=== PATIENT | female | born 1950 | race Caucasian/White ===

== ENCOUNTER 2018-02-10 08:59 | Outpatient (CLI) | payer MEDICARE, BC | END 2018-02-10 09:00 | disposition home or self-care (01) | LOC: BICMAMMO 08:59 | PROVIDERS: ATTEND Internal Medicine Rheumatology | DX: Z12.31 Encounter for screening mammogram for malignant neoplasm of breast (principal); M81.0 Age-related osteoporosis without current pathological fracture; M85.859 Other specified disorders of bone density and structure, unspecified thigh | CPT/HCPCS: 77063; 77067; 77080 ==

== ENCOUNTER 2019-03-16 08:54 | Outpatient (CLI) | payer MEDICARE, BC ==
--- NOTE | 2019-03-16 09:36 | MMO ---
Bilateral MAMMO Bilat Screen [facility]. CLINICAL HISTORY: Patient is 68 years old and is seen for screening. The patient has no family history of breast cancer. The patient has no personal history of cancer. The patient has a history of left Excisional Biopsy at age 29 - benign. VIEWS: The views performed were: bilateral craniocaudal with tomosynthesis and bilateral mediolateral oblique with tomosynthesis. FILMS COMPARED: The present examination has been compared to prior imaging studies performed at [facility] on 02/10/2018, at [facility] on 02/22/2015 and 01/30/2016, and at [facility] on 02/05/2017. MAMMOGRAM FINDINGS: The breasts are heterogeneously dense, which could obscure a lesion on mammography. There are stable benign appearing calcifications seen in both breasts. There are no suspicious masses, suspicious calcifications, or new areas of architectural distortion. IMPRESSION: THERE IS NO MAMMOGRAPHIC EVIDENCE OF MALIGNANCY. A ROUTINE FOLLOW-UP MAMMOGRAM IN 1 YEAR IS RECOMMENDED. THE RESULTS OF THIS EXAM WERE SENT TO THE PATIENT. ACR BI-RADS Category 2 - Benign finding MAMMOGRAPHY NOTE: 1. A negative mammogram report should not delay a biopsy if a dominant of clinically suspicious mass is present. 2. Approximately 10% to 15% of breast cancers are not detected by mammography. 3. Adenosis and dense breasts may obscure an underlying neoplasm.
--- NOTE | 2019-03-16 10:05 | BD ---
DEXA BONE DENSITOMETRY: (Dual energy x-ray absorptiometry) DATE: 03/16/2019 HISTORY: 68-year old white female for age-related, post-menopausal, osteoporosis screening. weight: 140 lbs height: 62 in. Age of menopause: 39 COMPARISON: Most recent previous: 02/05/2017. Baseline:07/01/2007 FINDINGS: The bone mineral density (BMD) is given in grams per square centimeter (g/cm2): LUMBAR SPINE: BMD (g/cm^2) T score Z score L1: 0.755 -2.1 -0.3 L2: 0.789 -2.2 -0.1 L3: 0.720 -3.3 -1.1 L4: 0.807 -2.3 -0.1 Total: 0.769 -2.5 -0.4 Change in BMD compared to most recent previous DEXA: +4.2 %. Change in BMD compared to baseline DEXA: + 9.4 %. HIP: BMD (g/cm^2) T score Z score Femoral neck: 0.686 -1.5 0.3 Total: 0.897 -0.4 1.1 Change in BMD compared to most recent previous DEXA: 4.1 %. Change in BMD compared to baseline DEXA: N/A %. FRAX WHO fracture risk assessment tool: 10 year fracture risk* Major osteoporotic fracture: 9.5 % Hip fracture: 1.2 % Reported risk factors: US (), neck BMD = 0.704 (g/cm^2), BMI = 25.6. *Fracture probability is calculated for an untreated patient. Fracture probability may be lower if th e patient has received treatment. IMPRESSION: 1.) The mean bone mineral density of the lumbar spine is osteoporotic. Fracture risk is high. 2) The bone mineral density of the femoral neck is osteopenic. Fracture risk is increased.
== END 2019-03-16 08:55 | disposition home or self-care (01) ==
LOC: BICMAMMO 08:54
PROVIDERS: ATTEND Internal Medicine Rheumatology
DX: Z12.31 Encounter for screening mammogram for malignant neoplasm of breast (principal); M81.0 Age-related osteoporosis without current pathological fracture; M85.89 Other specified disorders of bone density and structure, multiple sites
CPT/HCPCS: 77063; 77067; 77080

== ENCOUNTER 2020-05-20 07:59 | Outpatient (CLI) | payer MEDICARE, BC ==
[2020-05-20 10:09] LABS: #Lymphocytes 1.2 thou/uL (1.20-3.40); #Monocytes 0.2 thou/uL (0.11-0.59); #Neutrophils 2.8 thou/uL (1.40-6.50); %Basophils 1.2 % (0.0-1.0); %Eosinophils 1.1 % (0.0-10.0); %Lymphocytes 27.5 % (21.0-51.0); %Monocytes 4.2 % (0.0-10.0); %Neutrophils 66.1 % (42.0-75.0); Hemoglobin 14.4 g/dL (12.0-16.0); Mean Corpuscular HGB CONC 33.4 g/dL (32.0-36.0); Mean Corpuscular Hemoglobin 32.3 pg (27.0-31.0); Mean Corpuscular Volume 96.8 fL (78.0-98.0); Mean Platelet Volume 7.1 fL (7.4-10.4); Platelet Count 215 thou/uL (130-400); RBC Distribution Width 11.7 % (11.5-14.5); Red Blood Cell (RBC) Count 4.45 mill/uL (4.20-5.40); White Blood Cell (WBC) Count 4.2 thou/uL (4.8-10.8)
[2020-05-20 10:30] LABS: ALT (SGPT) 19 U/L (8-55); AST (SGOT) 23 U/L (5-34); Albumin 5.2 g/dL (3.4-4.8); Alkaline Phosphatase 49 U/L (40-110); Anion Gap 15 mmol/L (10-20); BUN (Urea Nitrogen) 14 mg/dL (9.8-20.1); Bilirubin, Total 0.5 mg/dL (0.2-1.2); Calc. Creatinine Clearance 0 mL/min (70-130); Calcium 10.5 mg/dL (7.8-10.44); Carbon Dioxide 26 mmol/L (23-31); Chloride 103 mmol/L (98-107); Estimated GFR-MDRD 57; Globulin 3.1 g/dL (2.4-3.5); Glucose 147 mg/dL (80-115); Potassium 3.6 mmol/L (3.5-5.1); Protein, Total 8.3 g/dL (6.0-8.3); Sodium 140 mmol/L (136-145)
--- NOTE | 2020-05-20 13:14 | MRI ---
MRI brain with and without contrast: DATE: 05/20/2020 HISTORY: 69-year-old female with stage IIIB metastatic melanoma follow-up. ICD-10: C 43.9 malignant melanoma of skin. COMPARISON: [facility] [place] The report is not available. TECHNIQUE: Multiplanar, multisequence MRI of the brain obtained pre and post IV injection of gadolinium based co ntrast agent. FINDINGS: There is no obstructive hydrocephalus. There is no midline shift or any other evidence of mass effect . There is no extra-axial fluid collection. There are mild chronic ischemic white matter changes due to microvascular atherosclerosis. There is otherwise no major intra-axial signal abnormality, abn ormal enhancement, mass, recent hemorrhage, or restricted diffusion. There is a subtle finding of a faint linear enhancing draining vein in the left parietal lobe, from moore-white junction laterally to posterior left lateral ventricular surface medially, consistent with DVA (developmental venous anomaly). There is associated mild small patchy T2 hyperintensity in this location, unchanged. There is a punctate focus of hemosiderin in this location, better visualized on the previous study. The right parotid gland is absent. Overall, there has been no significant interval change. IMPRESSION: 1) mild chronic ischemic white matter changes. 2) incidental finding of small DVA (developmental venous anomaly) in left parietal lobe. 3) otherwise negative. No evidence of brain metastasis. 4) status post right parotidectomy.
--- NOTE | 2020-05-20 14:14 | CT ---
EXAM: CT chest, abdomen, and pelvis with IV contrast: HISTORY: Malignant melanoma skin. COMPARISON: 06/07/2019 [facility] from [facility] as well as a CT abdomen and pelvis on 07/30/2019 f [facility]. FINDINGS: CT THORAX: Lungs: Mild emphysematous changes are seen involving the upper lobes. Approximately 5 mm pulmonary no dule is seen at the anterolateral right lung base. Stable when compared to prior study as well as a study in 2010. No new discrete pulmonary nodule or mass is seen. Minimal scarring is seen at the quynh phery of the upper lobes bilaterally. Pleura: Tiny bilateral pleural effusions are seen not significantly changed from prior study. Lymph nodes: No lymphadenopathy. Mediastinum: No acute process of the mediastinal structures. There is a hypodense lesion in the left left lobe of the thyroid gland also seen on prior study in 2019. Chest wall: No abnormalities CT ABDOMEN AND PELVIS: Liver: Lobulated cyst right hepatic lobe is again seen. There is a small hypodense lesion seen in the medial aspect of the right hepatic lobe which was also seen on prior study as well as a study in 2009 and is unchanged in size. There is a focus of enhancement seen just below the level of the lobul ated cyst in the right hepatic lobe which may represent either prominent vessel in this region versus small vascular malformation. Previously seen hypodense cyst in the right aspect dome of the l iver is smaller in size. Gallbladder: Within normal limits. \ Pancreas: Within normal limits. Spleen: Within normal limits. Adrenal glands: Within normal limits. Kidneys: Within normal limits. Urinary Bladder: Mostly decompressed but otherwise grossly within normal limits. Reproductive organs: Evidence of hysterectomy. Bowel: Normal in caliber. Postoperative changes are seen involving the sigmoid colon with evidence of anastomosis and this region. Adenopathy:No lymphadenopathy within the abdomen or pelvis. Peritoneum: No free fluid or fluid collection is seen. No free intraperitoneal gas is identified. Abdominal wall: Multiple surgical clips are again seen in the left inguinal region left aspect of the pelvis. Osseous structures: No suspicious lytic or sclerotic osseous lesions are identified. IMPRESSION: 1. No findings to suggest metastatic disease. 2. Persistent tiny bilateral pleural effusions. 3. Stable lobulated right hepatic lobe cyst with difficult to characterize hypodense lesion medial ri ght hepatic lobe, but this lesion is stable when compared to prior studies including a study in 2009. 4. Postoperative changes sigmoid colon and involving the left aspect of the pelvis and left inguinal region.
== END 2020-05-20 08:00 | disposition home or self-care (01) ==
LOC: SCSCT 07:59
PROVIDERS: ATTEND Internal Medicine Medical Oncology
DX: C43.9 Malignant melanoma of skin, unspecified (principal); J90 Pleural effusion, not elsewhere classified; K76.89 Other specified diseases of liver; K76.9 Liver disease, unspecified; Z98.890 Other specified postprocedural states
CPT/HCPCS: 70553; 71260; 74177; 80053; 83615; 85025

== ENCOUNTER 2021-03-20 08:37 | Outpatient (CLI) | payer MEDICARE, BC | END 2021-03-20 08:38 | disposition home or self-care (01) | LOC: BICMAMMO 08:37 | PROVIDERS: ATTEND Internal Medicine Rheumatology | DX: Z12.31 Encounter for screening mammogram for malignant neoplasm of breast (principal); M81.0 Age-related osteoporosis without current pathological fracture; N64.89 Other specified disorders of breast; M85.89 Other specified disorders of bone density and structure, multiple sites; Z85.820 Personal history of malignant melanoma of skin | CPT/HCPCS: 77063; 77067; 77080 ==

== ENCOUNTER 2022-05-11 07:58 | Outpatient (CLI) | payer MEDICARE, BC | END 2022-05-11 07:59 | disposition home or self-care (01) | LOC: RAD 07:58 | PROVIDERS: ATTEND Internal Medicine Critical Care Medicine | DX: R06.00 Dyspnea, unspecified (principal) | CPT/HCPCS: 71046 ==

== ENCOUNTER 2023-06-17 08:35 | Outpatient (CLI) | payer MEDICARE, BC | END 2023-06-17 08:36 | disposition home or self-care (01) | LOC: BICMAMMO 08:35 | PROVIDERS: ATTEND Internal Medicine Rheumatology | DX: M81.0 Age-related osteoporosis without current pathological fracture (principal); M85.851 Other specified disorders of bone density and structure, right thigh; M85.852 Other specified disorders of bone density and structure, left thigh | CPT/HCPCS: 77080 ==

== ENCOUNTER 2025-07-13 07:53 | Outpatient (CLI) | payer MEDICARE | END 2025-07-13 07:54 | disposition home or self-care (01) | LOC: BICMAMMO 07:53 | PROVIDERS: ATTEND Internal Medicine Rheumatology | DX: M81.0 Age-related osteoporosis without current pathological fracture (principal); M85.89 Other specified disorders of bone density and structure, multiple sites | CPT/HCPCS: 77080 ==